=== PATIENT | female | born 1985 | race Caucasian/White ===

== ENCOUNTER 2020-10-14 08:15 | Emergency (ER) | payer OTHER ==
[~2020-10-14] VITALS: Ht 162.6 cm; Wt 117.9 kg
[2020-10-14 08:17] VITALS: BP 141/72
[2020-10-14] MEDS ORDERED: CELEBREX 200 M200 M1 PO (08:34)
[2020-10-14] MEDS ORDERED: PRISTIQ100 MG PO (08:34)
[2020-10-14] MEDS ORDERED: ATIVAN1 M1 PO (08:35)
[2020-10-14] MEDS ORDERED: KEFLEX500 M1 PO (08:45)
[2020-10-14] MEDS ORDERED: HYDROXYZINE HCL50 MG PO (08:45)
== END 2020-10-14 09:00 | disposition home or self-care (01) ==
LOC: ER 08:15
DX: S40.862A Insect bite (nonvenomous) of left upper arm, initial encounter (principal); S40.861A Insect bite (nonvenomous) of right upper arm, initial encounter; S80.862A Insect bite (nonvenomous), left lower leg, initial encounter; S80.861A Insect bite (nonvenomous), right lower leg, initial encounter; S30.861A Insect bite (nonvenomous) of abdominal wall, initial encounter; S20.169A Insect bite (nonvenomous) of breast, unspecified breast, initial encounter; L03.90 Cellulitis, unspecified; Z90.49 Acquired absence of other specified parts of digestive tract; Z90.710 Acquired absence of both cervix and uterus; Z79.899 Other long term (current) drug therapy; F17.210 Nicotine dependence, cigarettes, uncomplicated; Z88.1 Allergy status to other antibiotic agents; Z88.8 Allergy status to other drugs, medicaments and biological substances; Z91.048 Other nonmedicinal substance allergy status; W57.XXXA Bitten or stung by nonvenomous insect and other nonvenomous arthropods, initial encounter; Y93.89 Activity, other specified; Y92.89 Other specified places as the place of occurrence of the external cause; Y99.8 Other external cause status